=== PATIENT | male | born 1970 | race American Indian/Alaskan Native ===

== ENCOUNTER 2018-12-23 08:48 | Observation (INO) | payer BC, OTHER ==
--- NOTE | 2018-12-23 09:41 | XRay Report ---
CHEST 2 VIEWS INDICATION: Chest pain for one day. COMPARISON: 07/24/2016 FINDINGS: Support devices: None. Heart: Within normal limits. Lungs/pleura: No acute air space or interstitial disease. No pneumothorax. Additional findings: None. IMPRESSION: No acute findings. Signer Name: Ozzy Schwartz Jr, MD Signed: 12/23/2018 9:37 AM Workstation Name: [id number]
[2018-12-23 09:45] LABS: Basophils % (Auto) 0.2 % (0.0-1.8); Eosinophils # (Auto) 0.3 K/mm3 (0.0-0.4); Eosinophils % (Auto) 4.7 % (0.0-4.3); Hematocrit 41.8 % (35.5-45.6); Hemoglobin 14.2 gm/dl (11.8-15.2); Lymphocytes # (Auto) 1.9 K/mm3 (1.2-5.4); Lymphocytes % (Auto) 29.6 % (13.4-35.0); Mean Corpuscular HGB Conc 34 % (32-34); Mean Corpuscular Volume 85 fl (84-94); Monocytes # (Auto) 0.4 K/mm3 (0.0-0.8); Monocytes % (Auto) 5.8 % (0.0-7.3); Platelet Count 194 K/mm3 (140-440); Red Blood Count 4.93 M/mm3 (3.65-5.03); Red Cell Distribution Width 13.2 % (13.2-15.2)
[2018-12-23 10:08] LABS: BUN/Creatinine Ratio 19; Blood Urea Nitrogen 17 mg/dL (9-20); Calcium 9.8 mg/dL (8.4-10.2); Hemolysis Index 8
[2018-12-23] MEDS ORDERED: MORPHINE IV ONE (12:20)
[2018-12-23] MEDS ORDERED: BABY ASPIRIN PO ONE (12:20)
--- NOTE | 2018-12-23 12:51 | Emergency Department Report ---
ED Chest Pain HPI - General Chief Complaint: Chest Pain Stated Complaint: CHEST PAIN/DIZZY Time Seen by Provider: 12/23/18 12:06 Source: patient Mode of arrival: Ambulatory Limitations: No Limitations - History of Present Illness Initial Comments: 48-year-old male presents to the emergency Department with complaints of some left-sided chest pain with radiation towards his back that started this morning on his way to work. He has some shortness of breath and his pain appears to worsen with respirations and causes him to get dizzy. He has a past medical history of hypertension and nonischemic dilated cardiomyopathy. The cardia myopathy was found on a stress test that he had done in 2017. He has not taken anything for his symptoms prior to arrival. No primary care physician. Radiologist is Dr. Barnes. He is a tobacco smoker but denies any illicit drug use. Severity scale (0 -10): 6 - Related Data Home Medications Medication Instructions Recorded Confirmed Last Taken Carvedilol [Coreg] 25 mg PO BID 12/23/18 12/23/18 12/22/18 Previous Rx's Medication Instructions Recorded Last Taken Type Aspirin 81 mg PO DAILY #30 tab.chew 07/25/16 12/22/18 Rx Simvastatin (Nf) [Zocor TAB] 20 mg PO QHS #30 tablet 07/25/16 12/22/18 Rx Lisinopril [Zestril TAB] 40 mg PO QDAY #30 tablet 07/26/16 12/22/18 Rx hydroCHLOROthiazide [HCTZ] 25 mg PO QDAY #30 tablet 07/26/16 12/22/18 Rx Allergies Allergy/AdvReac Type Severity Reaction Status Date / Time No Known Allergies Allergy Unverified 07/24/16 14:20 Heart Score - HEART Score History: Moderately suspicious EKG: Non-specific Age: 45-65 Risk factors: 1-2 risk factors Troponin: < normal limit HEART Score: 4 - Critical Actions Critical Actions: 4-6 pts:12-16.6% risk of adverse cardiac event. Should be admitted ED Review of Systems ROS: Stated complaint: CHEST PAIN/DIZZY Other details as noted in HPI Comment: All other systems reviewed and negative Constitutional: denies: chills, fever Eyes: denies: eye pain, vision change ENT: denies: ear pain, throat pain Respiratory: shortness of breath. denies: cough Cardiovascular: chest pain. denies: palpitations Gastrointestinal: denies: abdominal pain, vomiting Genitourinary: denies: dysuria, discharge Musculoskeletal: back pain. denies: arthralgia Skin: denies: rash, lesions Neurological: denies: headache, weakness ED Past Medical Hx - Past Medical History Previous Medical History?: Yes Hx Hypertension: Yes Additional medical history: cardiomyopathy - Surgical History Past Surgical History?: No - Social History Smoking Status: Current Every Day Smoker Substance Use Type: None - Medications Home Medications: Home Medications Medication Instructions Recorded Confirmed Last Taken Type Aspirin 81 mg PO DAILY #30 tab.chew 07/25/16 12/23/18 12/22/18 Rx Simvastatin (Nf) [Zocor TAB] 20 mg PO QHS #30 tablet 07/25/16 12/23/18 12/22/18 Rx Lisinopril [Zestril TAB] 40 mg PO QDAY #30 tablet 07/26/16 12/23/18 12/22/18 Rx hydroCHLOROthiazide [HCTZ] 25 mg PO QDAY #30 tablet 07/26/16 12/23/18 12/22/18 Rx Carvedilol [Coreg] 25 mg PO BID 12/23/18 12/23/18 12/22/18 History ED Physical Exam - General Limitations: No Limitations - Other Other exam information: GENERAL: The patient is well-developed well-nourished. HENT: Normocephalic. Atraumatic. Patient has moist mucous membranes. EYES: Extraocular motions are intact. NECK: Supple. Trachea is midline. CHEST/LUNGS: Clear to auscultation. There is no respiratory distress noted. HEART/CARDIOVASCULAR: Regular. There is no tachycardia. There is no murmur. ABDOMEN: Abdomen is soft, nontender. Patient has normal bowel sounds. There is no abdominal distention. SKIN: Skin is warm and dry. NEURO: The patient is awake, alert, and oriented. The patient is cooperative. The patient has no focal neurologic deficits. The patient has normal speech. MUSCULOSKELETAL: There is no tenderness or deformity. There is no limitation range of motion. There is no evidence of acute injury. ED Course Vital Signs 12/23/18 12/23/18 12/23/18 08:54 12:22 12:24 Temperature 98.3 F Pulse Rate 80 64 Respiratory 16 16 Rate Blood Pressure 159/92 Blood Pressure 171/85 [Right] O2 Sat by Pulse 99 98 98 Oximetry - Consultations Consultation #1: 12/23/18 15:17 I spoke with ZARIA Baptiste for [facility] cardiology, who recommended admission for further evaluation. SIENNA score - Sienna Score Age > 65: (0) No Aspirin use within the Past 7 Days: (0) No 3 or more CAD Risk Factors: (0) No 2 or more Angina events in past 24 hrs: (1) Yes Known CAD with more than 50% Stenosis: (0) No Elevated Cardiac Markers: (0) No ST Deviation Greater than 0.5mm: (0) No SIENNA Score: 1 ED Medical Decision Making - Lab Data Result diagrams: 12/23/18 09:20 12/23/18 09:20 - EKG Data -: EKG Interpreted by Me EKG shows normal: sinus rhythm, axis, intervals, QRS complexes (LVH), ST-T waves Rate: normal - EKG Data When compared to previous EKG there are: no significant change Interpretation: unchanged when compared t (07/24/16) - Radiology Data Radiology results: image reviewed interpreted by me: Chest x-ray does not show any acute process. There are no pleural effusions, obvious pneumonia and there is no pneumothorax. - Medical Decision Making This patient, with a history of hypertension and nonischemic dilated cardiomyopathy, presents with some acute left-sided chest pain with radiation towards the back. EKG shows some LVH but otherwise no signs of ST elevation KS and is unchanged from previous. Labs are grossly unremarkable including CBC, metabolic panel, negative troponins 2 and a negative d-dimer. The patient is improved after a small amount of pain medication but the chest pain has not completely resolved. It has been about 2 years since he last had a stress test. I contacted cardiology who recommended admission for further evaluation. The patient was accepted for admission by the hospitalist, Dr. Corona. - Differential Diagnosis KS, PE, costochondritis, pneumonia, GERD Critical Care Time: No Critical care attestation.: If time is entered above; I have spent that time in minutes in the direct care of this critically ill patient, excluding procedure time. ED Disposition Clinical Impression: Acute chest pain HTN (hypertension) Qualifiers: Hypertension type: essential hypertension Qualified Code(s): I10 - Essential (primary) hypertension Disposition: DC-09 OP ADMIT IP TO THIS HOSP Is pt being admited?: Yes Condition: Fair Instructions: Chest Pain (ED), Hypertension (ED) Referrals: GHAZALA JONES MD [Primary Care Provider] - 3-5 Days Time of Disposition: 15:18
[2018-12-23] MEDS ORDERED: APRESOLINE IV ONE (13:58)
--- NOTE | 2018-12-23 15:23 | Consultation ---
History of Present Illness Consult date: 12/23/18 Requesting physician: SHANTELL LAWRENCE Consult reason: chest pain History of present illness: The pt is a 48-year-old male with a past medical history of presumably NICMP, HTN, TIA, sleep apnea (reports compliance with CPAP), tobacco use (smokes 1/2 PPD). He is followed in our office by Dr. Avalos. He presented with c/o chest pain which started this morning on his way to work. He describes his chest pain as a constant left-sided aching pain which radiates into his back. The pain is sometimes aggravated by coughing. The pain is sometimes associated with dizziness. He also reports dyspnea on exertion for the past several days. Pt denies any n/v, BLE swelling, PND, orthopnea, diaphoresis or syncope. He reports compliance with his home medication regimen. Pt was last seen in our office by Dr. Avalos on 12/20/2018 and he states that he was feeling well at that appointment. Echo done 10/21/2018 showed EF 30-35%, mild LVH, mild MR, mild TR. Lexiscan MPI stress test done 07/2016 showed mod dilated LV, fixed defects with no significant ischemia, EF 19%. Past History Past Medical History: heart failure, hypertension Social history: smoking. denies: alcohol abuse, prescription drug abuse Medications and Allergies Allergies Allergy/AdvReac Type Severity Reaction Status Date / Time No Known Allergies Allergy Unverified 07/24/16 14:20 Home Medications Medication Instructions Recorded Confirmed Last Taken Type Aspirin 81 mg PO DAILY #30 tab.chew 07/25/16 12/23/18 12/22/18 Rx Simvastatin (Nf) [Zocor TAB] 20 mg PO QHS #30 tablet 07/25/16 12/23/18 12/22/18 Rx Lisinopril [Zestril TAB] 40 mg PO QDAY #30 tablet 07/26/16 12/23/18 12/22/18 Rx hydroCHLOROthiazide [HCTZ] 25 mg PO QDAY #30 tablet 07/26/16 12/23/18 12/22/18 Rx Carvedilol [Coreg] 25 mg PO BID 12/23/18 12/23/18 12/22/18 History Review of Systems Constitutional: no weight loss, no weight gain, no fever, no chills, no sweats Ears, nose, mouth and throat: no ear pain, no nose pain, no sinus pressure, no sinus pain Cardiovascular: chest pain, lightheadedness, dyspnea on exertion, no orthopnea, no palpitations, no rapid/irregular heart beat, no edema, no syncope, no shortness of breath, no paroxysmal nocturnal dyspnea, no leg edema Respiratory: cough, dyspnea on exertion, no cough with sputum, no shortness of breath, no congestion, no wheezing Gastrointestinal: no abdominal pain, no nausea, no vomiting, no diarrhea, no constipation, no change in bowel habits Genitourinary Male: no dysuria, no hematuria, no flank pain, no discharge, no urinary frequency, no urinary hesitancy Musculoskeletal: no neck stiffness, no neck pain, no shooting arm pain, no arm numbness/tingling, no low back pain, no shooting leg pain Integumentary: no rash, no pruritis, no redness, no sores, no wounds Neurological: no head injury, no paralysis, no weakness, no parathesias, no numbness, no tingling, no seizures, no syncope Psychiatric: no anxiety Endocrine: no cold intolerance, no heat intolerance Hematologic/Lymphatic: no easy bruising, no easy bleeding Allergic/Immunologic: no urticaria, no wheezing Physical Examination Vital Signs Temp Pulse BP Pulse Ox 98.3 F 80 159/92 99 12/23/18 08:54 12/23/18 08:54 12/23/18 08:54 12/23/18 08:54 General appearance: no acute distress HEENT: Positive: PERRL, Normocephaly, Mucus Membranes Moist Neck: Positive: neck supple, trachea midline Cardiac: Positive: Reg Rate and Rhythm, S1/S2 Lungs: Positive: clear to auscultation Neuro: Positive: Grossly Intact Abdomen: Positive: Soft. Negative: Tender Skin: Negative: Rash, Wound Musculoskeletal: No Pain Extremities: Absent: edema Results 12/23/18 09:20 12/23/18 09:20 CBC 12/23/18 Range/Units 09:20 WBC 6.3 (4.5-11.0) K/mm3 RBC 4.93 (3.65-5.03) M/mm3 Hgb 14.2 (11.8-15.2) gm/dl Hct 41.8 (35.5-45.6) % Plt Count 194 (140-440) K/mm3 Lymph # 1.9 (1.2-5.4) K/mm3 [place] # 0.4 (0.0-0.8) K/mm3 Eos # 0.3 (0.0-0.4) K/mm3 Baso # 0.0 (0.0-0.1) K/mm3 Comprehensive Metabolic Panel 12/23/18 Range/Units 09:20 Sodium 143 (137-145) mmol/L Potassium 4.0 (3.6-5.0) mmol/L Chloride 104.4 (98-107) mmol/L Carbon Dioxide 26 (22-30) mmol/L BUN 17 (9-20) mg/dL Creatinine 0.9 (0.8-1.5) mg/dL Glucose 114 H (75-100) mg/dL Calcium 9.8 (8.4-10.2) mg/dL - Imaging and Cardiology Echo: report reviewed (10/21/2018 showed EF 30-35%, mild LVH, mild MR, mild TR. ) EKG: report reviewed, image reviewed EKG interpretations - Telemetry EKG Rhythm: Sinus Rhythm - EKG Sinus rhythms and dysrhythmias: sinus rhythm Repolarization changes or abnormalities: repolarization abn secondary to ventricular hypertrophy Assessment and Plan Chest pain DDimer WNL, ECG with no acute ischemic changes, Zakia negative for AMI x 2 sets. Plan for lexiscan MPI stress test in AM. NPO after MN. Presumably nonischemic CMP EF 30-35% No current clinical evidence of acutely decompensated HF. Echo done 10/21/2018 showed EF 30-35%, mild LVH, mild MR, mild TR. Lexiscan MPI stress test done 07/2016 showed mod dilated LV, fixed defects with no significant ischemia, EF 19%. Resume GDMT and diuretic therapy as tolerated - pt's home medication regimen includes coreg, Entresto, aldactone, HCTZ, ASA 81 and statin. Accelerated HTN Resume home regimen and titrate as tolerated. H/o TIA Obstructive sleep apnea Pt reports compliance with QHS CPAP. Tobacco use Cessation encouraged. The patient has been seen in conjunction with Dr. Oleary who agrees with the assessment and plan of care.
[2018-12-23] MEDS ORDERED: ZESTRIL PO SCH (15:43)
--- NOTE | 2018-12-23 21:38 | Event Note ---
Date: 12/23/18 See dictated history and physical in the reports Chest pain rule out SC CHF Hypertension Cardiomyopathy
[2018-12-23] MEDS ORDERED: SODIUM CHLORIDE FLUSH SYRINGE 10 ML IV PRN (21:39)
[2018-12-23] MEDS ORDERED: PERCOCET 5/325 PO PRN (21:39)
[2018-12-23] MEDS ORDERED: TYLENOL PO PRN (21:39)
[2018-12-23] MEDS ORDERED: ZOFRAN IV PRN (21:39)
[2018-12-23] MEDS ORDERED: DILAUDID IV PRN (21:39)
[2018-12-23] MEDS: COREG PO SCH (21:41)
[2018-12-23] MEDS: PEPCID PO SCH (21:59)
[2018-12-23] MEDS: SODIUM CHLORIDE FLUSH SYRINGE 10 ML IV SCH (21:59)
[2018-12-23] MEDS ORDERED: LOVENOX SUB-Q SCH (22:00)
[2018-12-23] MEDS ORDERED: PRAVACHOL PO SCH (22:00)
[2018-12-23] MEDS ORDERED: NON-FORMULARY (Simvastatin 20 MG) PO SCH (22:00)
[2018-12-24 05:11] LABS: Basophils % (Auto) 0.3 % (0.0-1.8); Eosinophils # (Auto) 0.3 K/mm3 (0.0-0.4); Eosinophils % (Auto) 4.8 % (0.0-4.3); Lymphocytes # (Auto) 2.3 K/mm3 (1.2-5.4); Mean Corpuscular HGB Conc 34 % (32-34); Mean Corpuscular Volume 86 fl (84-94); Monocytes # (Auto) 0.5 K/mm3 (0.0-0.8); Monocytes % (Auto) 8.8 % (0.0-7.3); Platelet Count 177 K/mm3 (140-440); Red Blood Count 4.45 M/mm3 (3.65-5.03)
[2018-12-24 05:48] LABS: Alanine Aminotransferase 47 units/L (7-56); BUN/Creatinine Ratio 19; Blood Urea Nitrogen 19 mg/dL (9-20); Calcium 8.8 mg/dL (8.4-10.2); Hemolysis Index 61
--- NOTE | 2018-12-24 06:11 | History and Physical Report ---
CHIEF COMPLAINT: Left-sided chest pain since morning while going to work. HISTORY OF PRESENT ILLNESS: A 48-year-old -[place] male with history of nonischemic cardiomyopathy, hypertension and TIA, obstructive sleep apnea, nicotine dependence, comes in for chest pain, which started this morning on his way to work. Chest pain is constant and left-sided. It radiates to the back. No diaphoresis or palpitations. Aggravated by coughing. Pain is about 6-7 on a scale of 1-10. Also, dyspnea on exertion present for the last 3-4 days. No orthopnea. No palpitations. The patient has been taking his home medications including Coreg, Lasix and lisinopril. PAST MEDICAL HISTORY: As mentioned, cardiomyopathy, hypertension, and hyperlipidemia. PAST SURGICAL HISTORY: None. SOCIAL HISTORY: Smokes over a pack a day. No alcohol or drug use. FAMILY HISTORY: Hypertension. REVIEW OF SYSTEMS: Significant for left-sided chest pain and dyspnea on exertion. No orthopnea. A 14-point review of systems done, otherwise negative. PHYSICAL EXAMINATION: GENERAL: A middle-aged male, cooperative during examination. VITAL SIGNS: Temperature is 97.5, blood pressure is 124/75, respiratory rate is 24, sats are 97%. HEENT: Unremarkable. Pupils equal and reactive. NECK: Supple, no lymphadenopathy, no thyromegaly. LUNGS: Clear to auscultation and percussion. Good air entry. CARDIOVASCULAR: S1, S2 heard. No gallop, no murmur, no rub. Apical impulse in left fifth intercostal space and midclavicular line. ABDOMEN: Soft and benign. No hepatosplenomegaly. No guarding, no rigidity. Hernial orifices are normal. EXTREMITIES: Good pedal pulses. No pedal edema. CENTRAL NERVOUS SYSTEM: Alert and oriented x 4, nonfocal exam. SKIN: Normal. LABORATORY DATA: EKG shows heart rate of 67 per minute, LVH by voltage criteria. No acute ST-T wave changes. Chest x-ray, no acute findings. Labs are significant for white count of 6300, H and H is 14.2 and 41.8, platelet count is 194,000. Electrolytes are normal. Glucose is 114. A1c is 6.3. ASSESSMENT AND PLAN: 1. Chest pain, rule out myocardial infarction, chest pain protocol. Cardiology consulted. Serial troponins. Lexiscan in the morning. Differential diagnosis of gastroesophageal reflux disease and costochondritis. No chest wall tenderness. Costochondritis ruled out. 2. Hypertension. Continue antihypertensives in the form of lisinopril, Coreg and hydrochlorothiazide. 3. Hyperlipidemia. Continue simvastatin. 4. Congestive heart failure. The patient on hydrochlorothiazide, one dose of Lasix given. We will defer to Cardiology. 5. Nicotine dependence. The patient counseled about the dangers of coronary artery disease and peripheral arterial disease. Nicoderm patch initiated. 6. Deep venous thrombosis prophylaxis, Lovenox 40 mg subcutaneous daily and GI prophylaxis. JOB# [id number] VSM/NTS
[2018-12-24] MEDS ORDERED: LEXISCAN IV ONE ×2 (08:51→08:52)
[2018-12-24] MEDS ORDERED: HABITROL TD SCH (10:00)
[2018-12-24] MEDS ORDERED: ALDACTONE PO SCH (10:00)
[2018-12-24] MEDS ORDERED: BABY ASPIRIN PO SCH (10:00)
[2018-12-24] MEDS ORDERED: ZESTRIL PO SCH (10:00)
[2018-12-24] MEDS ORDERED: HCTZ PO SCH (10:00)
[2018-12-24] MEDS: PEPCID PO SCH (10:51)
[2018-12-24] MEDS: SODIUM CHLORIDE FLUSH SYRINGE 10 ML IV SCH (10:53)
[2018-12-24] MEDS: COREG PO SCH (10:53)
--- NOTE | 2018-12-24 11:36 | Progress Note ---
Assessment and Plan Chest pain - ? musculoskeletal Improved. DDimer WNL, ECG with no acute ischemic changes, Zakia negative for AMI x 2 sets. Proceed with lexiscan MPI stress test. Await findings. Presumably nonischemic CMP EF 30-35% No current clinical evidence of acutely decompensated HF. Echo done 10/21/2018 showed EF 30-35%, mild LVH, mild MR, mild TR. Lexiscan MPI stress test done 07/2016 showed mod dilated LV, fixed defects with no significant ischemia, EF 19%. Cont GDMT and diuretics as tolerated. Accelerated HTN BPs improved. Cont home regimen. H/o TIA Obstructive sleep apnea Pt reports compliance with QHS CPAP. Tobacco use Cessation encouraged. Proceed with lexiscan MPI stress test. Await findings. Pending stress test is negative for significant ischemia, pt may discharge home from cardiology standpoint. Recommend pt follow up in our office with Dr. Avalos within 1-2 weeks of hospital discharge ([phone]). The patient has been seen in conjunction with Dr. Oleary who agrees with the assessment and plan of care. Subjective Date of service: 12/24/18 Principal diagnosis: cp Interval history: pt seen s/p stress test. states his chest pain is nearly resolved. Objective Last Vital Signs Temp 97.7 F 12/24/18 03:54 Pulse 70 12/24/18 10:53 Resp 18 12/24/18 03:52 BP 138/86 12/24/18 10:53 Pulse Ox 98 12/24/18 03:52 - Physical Examination General: No Apparent Distress HEENT: Positive: PERRL, Normocephaly, Mucus Membranes Moist Neck: Positive: neck supple, trachea midline Cardiac: Positive: Reg Rate and Rhythm, S1/S2 Lungs: Positive: Decreased Breath Sounds Neuro: Positive: Grossly Intact Abdomen: Positive: Soft. Negative: Tender Skin: Negative: Rash, Wound Musculoskeletal: No Pain Extremities: Absent: edema - Labs and Meds Cardiac Enzymes 12/24/18 Range/Units 04:06 AST 26 (5-40) units/L CBC 12/24/18 Range/Units 04:06 WBC 6.2 (4.5-11.0) K/mm3 RBC 4.45 (3.65-5.03) M/mm3 Hgb 13.0 (11.8-15.2) gm/dl Hct 38.0 (35.5-45.6) % Plt Count 177 (140-440) K/mm3 Lymph # 2.3 (1.2-5.4) K/mm3 [place] # 0.5 (0.0-0.8) K/mm3 Eos # 0.3 (0.0-0.4) K/mm3 Baso # 0.0 (0.0-0.1) K/mm3 Comprehensive Metabolic Panel 12/24/18 Range/Units 04:06 Sodium 143 (137-145) mmol/L Potassium 4.2 (3.6-5.0) mmol/L Chloride 104.4 (98-107) mmol/L Carbon Dioxide 27 (22-30) mmol/L BUN 19 (9-20) mg/dL Creatinine 1.0 (0.8-1.5) mg/dL Glucose 117 H (75-100) mg/dL Calcium 8.8 (8.4-10.2) mg/dL AST 26 (5-40) units/L ALT 47 (7-56) units/L Alkaline Phosphatase 89 (35-129) units/L Total Protein 6.7 (6.3-8.2) g/dL Albumin 4.0 (3.9-5) g/dL - Imaging and Cardiology EKG: report reviewed, image reviewed Echo: report reviewed (10/21/2018 showed EF 30-35%, mild LVH, mild MR, mild TR. ) - EKG Sinus rhythms and dysrhythmias: sinus rhythm Repolarization changes or abnormalities: repolarization abn secondary to ventricular hypertrophy
--- NOTE | 2018-12-24 12:42 | Discharge Summary ---
Providers - Providers Date of Admission: 12/23/18 14:50 Date of discharge: 12/24/18 Attending physician: OMI LLANES 12/23/18 14:50 Consult to Cardiology [CONS] Routine Consulting Provider: MICKI TABARES Reason For Exam: Chest pain 12/23/18 21:39 Consult to Physician [CONS] Routine Comment: Consulting Provider: LEILANI ARNDT Physician Instructions: Reason For Exam: CHF Primary care physician: [facility], Hospitalization Reason for admission: cp Condition: Fair Hospital course: The pt is a 48-year-old male with a past medical history of presumably NICMP, HTN, TIA, sleep apnea (reports compliance with CPAP), tobacco use (smokes 1/2 PPD) who presented with c/o chest pain which started the morning [employer] on his way to work. He described his chest pain as a constant left-sided aching pain which radiates into his back. The pain is sometimes aggravated by coughing. Pt with no clinical evidence of acutely decompensated HF. Patient was seen by cardiology in consultation. MPI was completed on this admission which showed no ischemia. Cardiology felt patient could be discharged home and follow-up as an outpatient. Patient's pain was reproducible with palpation. Etiology of chest pain likely costochondritis/musculoskeletal. Disposition: DC-01 TO HOME OR SELFCARE Time spent for discharge: 32 Core Measure Documentation - Palliative Care Palliative Care/ Comfort Measures: Not Applicable - Core Measures Any of the following diagnoses?: none Exam - Constitutional Vitals: Temp Pulse Resp BP Pulse Ox 97.7 F 70 18 138/86 98 12/24/18 03:54 12/24/18 10:53 12/24/18 03:52 12/24/18 10:53 12/24/18 03:52 General appearance: Present: no acute distress, well-nourished - EENT Eyes: Present: PERRL ENT: hearing intact, clear oral mucosa - Neck Neck: Present: supple, normal ROM - Respiratory Respiratory effort: normal Respiratory: bilateral: CTA - Cardiovascular Heart Sounds: Present: S1 & S2. Absent: rub, click - Extremities Extremities: pulses symmetrical, No edema Peripheral Pulses: within normal limits - Abdominal General gastrointestinal: Present: soft, non-tender, non-distended, normal bowel sounds Male genitourinary: Present: normal - Integumentary Integumentary: Present: clear, warm, dry - Musculoskeletal Musculoskeletal: gait normal, strength equal bilaterally - Psychiatric Psychiatric: appropriate mood/affect, intact judgment & insight - Neurologic Neurologic: CNII-XII intact, moves all extremities Plan Activity: no restrictions Weight Bearing Status: Full Weight Bearing Diet: regular [facility] - 3-5 Days MICKI TABARES MD [Staff Physician] - 7 Days Prescriptions: Spironolactone [Aldactone] 12.5 mg PO DAILY #30 tablet Carvedilol [Coreg] 25 mg PO BID #60 tablet Nicotine [Habitrol] 14 mg TD QDAY #30 patch hydroCHLOROthiazide [HCTZ] 25 mg PO QDAY #30 tablet oxyCODONE /ACETAMINOPHEN [Percocet 5/325 mg] 1 tab PO Q6H PRN #30 tablet PRN Reason: Pain, Moderate (4-6) Pravastatin [Pravachol] 40 mg PO QHS #30 tablet Lisinopril [Zestril TAB] 40 mg PO QDAY #30 tablet
--- NOTE | 2018-12-24 13:05 | Treadmill Report ---
NUCLEAR PERFUSION STUDY REASON FOR STUDY: Chest pain. IMAGING PROTOCOL: The patient received 10 mCi of Technetium 99m Tetrofosmin for resting image and 28 mCi of Technetium 99m Tetrofosmin for stress imaging. The imaging for the whole procedure was completed 30-90 minutes following the initial injection of Technetium 99m Tetrofosmin. The SPECT imaging in the 180 degree arc was performed in the right anterior oblique projection. Computerized reconstruction of the images was performed for analysis. IMAGING RESULTS: Cavity is mildly dilated on both stress and rest with normal distribution anterior, inferior, septal, and apical regions. The patient's Gated SPECT, EF 37% with mild to moderate global hypokinesis. The patient exercised on Lucio protocol for 6 minutes and only achieved 70% maximum heart rate. The patient was changed to walking Lexiscan. No EKG changes or arrhythmia suggestive of ischemia. SUMMARY: 1. Negative walking Lexiscan EKG. 2. Fair exercise capacity 6 minutes Lucio protocol, 70% maximum heart rate. No exaggerated BP response to exercise, no EKG changes suggestive of ischemia. 3. Normal rest and stress myocardial perfusion scan. No significant stress ischemia. Gated SPECT, EF 37%, suggestive of nonischemic cardiomyopathy. JOB# [id number] MAE/HOSEA
[2018-12-24 13:53] VITALS: BP 134/73
--- NOTE | 2018-12-25 03:21 | Treadmill Report ---
TREADMILL PORTION OF THE NUCLEAR STRESS TEST The patient has a history of cardiomyopathy with shortness of breath, palpitations and chest discomfort. The patient initially walked on Lucio protocol for 6 minutes. Resting heart rate was 57, resting blood pressure 145/90. The patient at 6 minutes in stage 3 with shortness of breath cannot continue, so he was injected with Lexiscan. The patient achieved 110 beats per minute, which is 70% of maximum predicted heart rate with no EKG changes to suggest ischemia. Maximum blood pressure 165/95. There are no EKG changes suggestive of ischemia. The patient infused with Lexiscan and isotope was injected ____. SUMMARY: 1. Fair exercise capacity, 6 minutes Lucio protocol. 2. Walking Lexiscan. 3. There was no EKG change or arrhythmia such as ischemia during the stress or Lexiscan suggestive of ischemia. No exaggerated BP response to exercise. Fair exercise capacity. IMAGING: Pending. JOB# [id number] MAE/HOSEA
== END 2018-12-24 16:25 | disposition home or self-care (01) ==
LOC: ED 08:48 → 4A 14:50
PROVIDERS: ADMIT Internal Medicine; ATTEND Hospitalist
DX: R07.89 Other chest pain (principal); I25.5 Ischemic cardiomyopathy; G47.33 Obstructive sleep apnea (adult) (pediatric); E78.5 Hyperlipidemia, unspecified; I11.0 Hypertensive heart disease with heart failure; I50.9 Heart failure, unspecified; Z86.73 Personal history of transient ischemic attack (TIA), and cerebral infarction without residual deficits; F17.200 Nicotine dependence, unspecified, uncomplicated; Z79.899 Other long term (current) drug therapy
CPT/HCPCS: 36415; 71046; 78452; 80048; 80053; 83036; 83880; 84484; 85025; 85379; 93005; 93010; 93017; 94660; 96372; 96374; 99284; A9270; A9502; G0378; J0360; J1650; J2270; J2785

== ENCOUNTER 2021-04-04 11:59 | Emergency (ER) | payer BC, MEDICARE ==
[2021-04-04] MEDS ORDERED: MECLIZINE 25 MG TAB PO ONE (12:39)
--- NOTE | 2021-04-04 12:42 | Emergency Department Report ---
HPI - General Chief Complaint: Dizziness - HPI HPI: 50-year-old -[place] male presents to the emergency department with a complaint of some dizziness/lightheadedness that has been going on since yesterday. He says that it is a vertigo or room spinning type sensation. Ari carrillo also was concerned as he said that he had an episode yesterday in which the left side of his face felt "different" and with the dizziness/lightheadedness he was not able to drive his car and switch seats with his passenger. Lastly, the patient also says that he has been having some increased shortness of breath at night despite compliance with his CPAP. He has a history of a cardiomyopathy, hypertension, and obstructive sleep apnea. The patient says that he has been compliant with his medications including Entresto. He follows with Dr. Barnes for cardiology, but does not have a primary care physician. No recent travel or sick contacts at home. He denies any fever, chest pain, lower extremity swelling, back pain, cough, vision change, slurred speech, focal or lateralizing weakness. ED Past Medical Hx - Past Medical History Hx Hypertension: Yes Hx Congestive Heart Failure: No Hx Diabetes: No Hx Asthma: No Hx COPD: No Additional medical history: cardiomyopathy - Surgical History Past Surgical History?: No - Social History Smoking Status: Current Every Day Smoker - Medications Home Medications: Home Medications Medication Instructions Recorded Confirmed Last Taken Type Aspirin 81 mg PO DAILY #30 tab.chew 07/25/16 12/23/18 12/22/18 Rx Famotidine [Pepcid] 20 mg PO BID tablet 12/24/18 Unknown Rx Nicotine [Habitrol] 14 mg TD QDAY #30 patch 12/24/18 Unknown Rx Pravastatin [Pravachol] 40 mg PO QHS #30 tablet 12/24/18 Unknown Rx Spironolactone [Aldactone] 12.5 mg PO DAILY #30 tablet 12/24/18 Unknown Rx carvediloL [Coreg] 25 mg PO BID #60 tablet 12/24/18 Unknown Rx hydroCHLOROthiazide [HCTZ] 25 mg PO QDAY #30 tablet 12/24/18 Unknown Rx lisinopriL [Zestril TAB] 40 mg PO QDAY #30 tablet 12/24/18 Unknown Rx oxyCODONE /ACETAMINOPHEN [Percocet 1 tab PO Q6H PRN #30 tablet 12/24/18 Unknown Rx 5/325 mg] Albuterol Mdi (or & Nicu Only) 2 puff IH QID PRN #8.5 gram 04/04/21 Unknown Rx [ProAir HFA Inhaler] Meclizine [Antivert] 25 mg PO TID PRN #15 tablet 04/04/21 Unknown Rx ED Review of Systems ROS: Stated complaint: DIZZINESS Other details as noted in HPI Comment: All other systems reviewed and negative Constitutional: weakness. denies: chills, fever Eyes: denies: eye pain, vision change ENT: denies: ear pain, throat pain Respiratory: orthopnea (At night), shortness of breath (Intermittent). denies: cough Cardiovascular: denies: chest pain, palpitations Gastrointestinal: denies: abdominal pain, vomiting Genitourinary: denies: dysuria, discharge Musculoskeletal: denies: back pain, arthralgia Skin: denies: rash, lesions Neurological: other (Dizziness/lightheadedness). denies: headache, numbness, paresthesias Physical Exam - Physical Exam Vital Signs: Vital Signs 04/04/21 12:16 Temperature 98.5 F Pulse Rate 73 Respiratory 20 Rate Blood Pressure 132/79 O2 Sat by Pulse 98 Oximetry Physical Exam: GENERAL: The patient is well-developed well-nourished. HENT: Normocephalic. Atraumatic. Patient has moist mucous membranes. EYES: Extraocular motions are intact. No nystagmus. NECK: Supple. Trachea is midline. CHEST/LUNGS: Clear to auscultation. There is no respiratory distress noted. HEART/CARDIOVASCULAR: Regular. There is no tachycardia. There is no murmur. ABDOMEN: Abdomen is soft, nontender. Patient has normal bowel sounds. There is no abdominal distention. SKIN: Skin is warm and dry. NEURO: The patient is awake, alert, and oriented. The patient is cooperative. The patient has no focal neurologic deficits. Normal speech. Cranial nerves II through XII grossly intact. No facial asymmetry. No pronator drift or dysmetria. MUSCULOSKELETAL: There is no tenderness or deformity. There is no limitation range of motion. ED Course Vital Signs 04/04/21 12:16 Temperature 98.5 F Pulse Rate 73 Respiratory 20 Rate Blood Pressure 132/79 O2 Sat by Pulse 98 Oximetry ED Medical Decision Making - Lab Data Result diagrams: 04/04/21 12:51 04/04/21 12:51 Lab Results 04/04/21 04/04/21 04/04/21 Range/Units 12:51 12:51 12:51 WBC 7.0 (4.5-11.0) K/mm3 RBC 5.42 H (3.65-5.03) M/mm3 Hgb 15.6 H (11.8-15.2) gm/dl Hct 46.8 H (35.5-45.6) % MCV 86 (84-94) fl MCH 29 (28-32) pg MCHC 33 (32-34) % RDW 12.7 L (13.2-15.2) % Plt Count 221 (140-440) K/mm3 Lymph % (Auto) 32.3 (13.4-35.0) % [place] % (Auto) 8.4 H (0.0-7.3) % Eos % (Auto) 2.2 (0.0-4.3) % Baso % (Auto) 0.3 (0.0-1.8) % Lymph # (Auto) 2.3 (1.2-5.4) K/mm3 [place] # (Auto) 0.6 (0.0-0.8) K/mm3 Eos # (Auto) 0.2 (0.0-0.4) K/mm3 Baso # (Auto) 0.0 (0.0-0.1) K/mm3 Seg Neutrophils % 56.8 (40.0-70.0) % Seg Neutrophils # 4.0 (1.8-7.7) K/mm3 Sodium 140 (137-145) mmol/L Potassium 4.1 (3.6-5.0) mmol/L Chloride 99.6 (98-107) mmol/L Carbon Dioxide 29 (22-30) mmol/L Anion Gap 16 mmol/L BUN 20 (9-20) mg/dL Creatinine 1.3 (0.8-1.3) mg/dL Estimated GFR > 60 ml/min BUN/Creatinine Ratio 15 % Glucose 94 (75-100) mg/dL Calcium 9.6 (8.4-10.2) mg/dL Troponin T < 0.010 (0.00-0.029) ng/mL NT-Pro-B Natriuret Pep 18.25 (0-450) pg/mL - EKG Data -: EKG Interpreted by Me EKG shows normal: sinus rhythm, axis, intervals, QRS complexes (LVH), ST-T waves Rate: normal - EKG Data When compared to previous EKG there are: no significant change Interpretation: unchanged when compared t (12/23/18) - Radiology Data Radiology results: image reviewed interpreted by me: Chest x-ray does not show any acute process. There are no pleural effusions, obvious pneumonia and there is no pneumothorax. No widened mediastinum. - Medical Decision Making This patient presents to the emergency department with a complaint of some dizziness/lightheadedness that sounds more like vertigo-like symptoms. He did describe some type of episode yesterday which he had a change in the left side of his face. However, at the time of my examination he does not have any focal, motor or sensory deficits and his cranial nerves are intact. No facial asymmetry. No pronator drift. Patient denies any any headache or slurred speech or vision changes. Heart and lung sounds are normal auscultation the patient does not appear in any respiratory or acute distress. EKG does not have any morphology consistent with ST elevation myocardial infarction. Chest x-ray does not show any pneumonia, pleural effusions, pneumothorax, focal consolidation, widened mediastinum, or any other acute process. Patient's labs have been unremarkable including CBC, metabolic panel, BNP, normal troponin, and normal thyroid function. The patient was given a dose of Antivert and upon reevaluation says he is feeling greatly improved. Vital signs reassuring including being afebrile. For all these reasons patient appears safe for discharge home at this time. He has been instructed to follow-up with primary care and cardiology. He has been given a prescription for Antivert and an albuterol inhaler. He will return to the emergency department with any worsening of symptoms or with any acute distress. Critical Care Time: No Critical care attestation.: If time is entered above; I have spent that time in minutes in the direct care of this critically ill patient, excluding procedure time. ED Disposition Clinical Impression: Dizziness, Vertigo, History of cardiomyopathy, Nocturnal dyspnea Disposition: HOME / SELF CARE / HOMELESS Is pt being admited?: No Condition: Stable Instructions: Vertigo, Dizziness Additional Instructions: Please follow-up with a primary care physician in the next few days. I have given you a referral for a local primary care physician, Dr. Seymour, and a primary care clinic, [facility]. Return to the emergency department with any worsening of your symptoms, new or concerning symptoms not addressed during this current emergency department visit, or with any acute distress. Prescriptions: Meclizine [Antivert] 25 mg PO TID PRN #15 tablet PRN Reason: Vertigo Albuterol Mdi (or & Nicu Only) [ProAir HFA Inhaler] 2 puff IH QID PRN #8.5 gram PRN Reason: Shortness Of Breath Referrals: PRIMARY CARE, [Primary Care Provider] - 3-5 Days CHAPARRITA SEYMOUR MD [Staff Physician] - 3-5 Days [facility] [Provider Group] - 3-5 Days Forms: Work/School Release Form(ED) Time of Disposition: 15:06
--- NOTE | 2021-04-04 13:32 | XRay Report ---
CHEST 2 VIEWS INDICATION / CLINICAL INFORMATION: SOB. COMPARISON: Chest x-ray 12/23/2018 FINDINGS: SUPPORT DEVICES: None. HEART / MEDIASTINUM: No significant abnormality. LUNGS / PLEURA: No significant pulmonary or pleural abnormality. No pneumothorax. ADDITIONAL FINDINGS: No significant additional findings. IMPRESSION: 1. No acute findings. Signer Name: Michi Mcdonald MD Signed: 04/04/2021 1:28 PM Workstation Name: [employer]
[2021-04-04 14:22] LABS: Basophils % (Auto) 0.3 % (0.0-1.8); Eosinophils # (Auto) 0.2 K/mm3 (0.0-0.4); Eosinophils % (Auto) 2.2 % (0.0-4.3); Hematocrit 46.8 % (35.5-45.6); Hemoglobin 15.6 gm/dl (11.8-15.2); Lymphocytes # (Auto) 2.3 K/mm3 (1.2-5.4); Lymphocytes % (Auto) 32.3 % (13.4-35.0); Mean Corpuscular HGB Conc 33 % (32-34); Mean Corpuscular Volume 86 fl (84-94); Monocytes # (Auto) 0.6 K/mm3 (0.0-0.8); Monocytes % (Auto) 8.4 % (0.0-7.3); Platelet Count 221 K/mm3 (140-440); Red Blood Count 5.42 M/mm3 (3.65-5.03); Red Cell Distribution Width 12.7 % (13.2-15.2)
[2021-04-04 14:38] LABS: BUN/Creatinine Ratio 15; Blood Urea Nitrogen 20 mg/dL (9-20); Calcium 9.6 mg/dL (8.4-10.2); Hemolysis Index 22
[2021-04-04 15:20] VITALS: BP 128/79
--- NOTE | 2021-04-06 08:18 | Electrocardiograph Report ---
[facility] Test Date: 2021-04-04 Test Time: 12:50:32 Pat Name: OTF RODRÍGUEZ Department: Room: Gender: M [employer]: EARL : 1970 Requested By: SHANTELL LAWRENCE Order Number: [id number] Reading MD: Tom Gonsalez Measurements Intervals [place] Rate: 70 P: 49 NV: 174 QRS: 61 QRSD: 103 T: 17 QT: 416 QTc: 450 Interpretive Statements Sinus rhythm Probable left ventricular hypertrophy ST elev, probable normal early repol pattern No previous ECG available for comparison Electronically Signed On 04-06-2021 8:17:59 EST by Tom Gonsalez
== END 2021-04-04 15:20 | disposition home or self-care (01) ==
LOC: ED 11:59
DX: R42 Dizziness and giddiness (principal); R06.00 Dyspnea, unspecified; I10 Essential (primary) hypertension; F17.200 Nicotine dependence, unspecified, uncomplicated
CPT/HCPCS: 36415; 71046; 80048; 83880; 84484; 85025; 93005; 99284